=== PATIENT | male | born 1960 | race Caucasian/White ===

== ENCOUNTER 2017-06-01 15:44 | Inpatient (IN) | payer OTHER ==
[~2017-06-01] VITALS: Ht 172.7 cm; Wt 78.5 kg
[2017-06-01] MEDS ORDERED: LIPITOR80 MG PO (16:31)
[2017-06-01] MEDS ORDERED: METOPROLOL SUCC50 M2 PO (16:31)
[2017-06-01] MEDS ORDERED: ASPIR 8181 MG PO (16:32)
[2017-06-01] MEDS ORDERED: ALTACE5 MG (16:32)
[2017-06-01 17:18] LABS: BASOPHIL % 0.6 % (0-2); PLATELET COUNT 217 x10^3mcL (130-400); RED CELL DISTRIBUTION WIDTH 13.4 % (11.5-14.5)
[2017-06-01 17:27] LABS: CALCIUM 9.2 mg/dL (8.5-10.1); CHLORIDE SERUM 103 mmol/L (98-107); CREATININE SERUM 0.9 mg/dL (0.7-1.3); GFR1 > 60 mL/min; GLUCOSE SERUM 90 mg/dL (74-106); POTASSIUM SERUM 3.5 mmol/L (3.5-5.1); SODIUM SERUM 135 mmol/L (136-145)
[2017-06-01 17:31] LABS: ALBUMIN 4.1 g/dL (3.4-5.0); ALKALINE PHOSPHATASE 55 U/L (46-116); ALT/SGPT 35 U/L (16-63); AST/SGOT 27 U/L (15-37); BILIRUBIN TOTAL 0.87 mg/dL (0.20-1.00); HDL CHOLESTEROL 41 mg/dL (40-60); TOTAL PROTEIN, SERUM 7.1 g/dL (6.4-8.2); TRIGLYCERIDES 161 mg/dL (<150)
[2017-06-01 17:34] LABS: CHOLESTEROL 116 mg/dL (<200); CHOLESTEROL/HDL RATIO 2.8
[2017-06-01 18:59] LABS: AMPHETAMINE QUAL UR NONE DETECTED (NEG <=1000)
[2017-06-01 19:25] LABS: PHOSPHOROUS 4.2 mg/dL (2.5-4.9)
[2017-06-01 19:34] VITALS: Ht 172.7 cm; Wt 78.5 kg
[2017-06-01 19:35] LABS: T3 TOTAL 0.96 ng/mL
[2017-06-01 19:37] LABS: FREE T4 0.92 ng/dL (0.76-1.46); FREE THYROXINE INDEX 2.8 ug/dL (1.4-4.5); T4(THYROXINE) 8.1 ug/dL (4.7-13.3)
[2017-06-02 06:33] VITALS: BP 120/69
[2017-06-02 09:20] VITALS: BP 120/76
[2017-06-02 13:47] VITALS: BP 114/78
[2017-06-02 14:53] LABS: microscopic required? NO
[2017-06-02 14:58] LABS: urine erythrocyte NEGATIVE (NEGATIVE)
[2017-06-02 18:46] VITALS: BP 119/76
[2017-06-02 20:18] VITALS: BP 115/72
[2017-06-03 05:44] VITALS: BP 120/74
[2017-06-03 06:28] LABS: BASOPHIL % 0.4 % (0-2); PLATELET COUNT 211 x10^3mcL (130-400); RED CELL DISTRIBUTION WIDTH 13.3 % (11.5-14.5)
[2017-06-03 06:34] LABS: CALCIUM 8.8 mg/dL (8.5-10.1); CARBON DIOXIDE 28.7 mmol/L (21-32); CHLORIDE SERUM 106 mmol/L (98-107); CREATININE SERUM 0.9 mg/dL (0.7-1.3); GFR1 > 60 mL/min; GLUCOSE SERUM 98 mg/dL (74-106); POTASSIUM SERUM 4.4 mmol/L (3.5-5.1); SODIUM SERUM 142 mmol/L (136-145)
[2017-06-03 10:30] VITALS: BP 127/76
[2017-06-03 17:37] VITALS: BP 101/64
[2017-06-03] MEDS ORDERED: METOPROLOL TART25 M1 PO (18:21)
[2017-06-03 19:16] VITALS: BP 101/64
== END 2017-06-03 19:45 | disposition home or self-care (01) | DRG 309 ==
LOC: ED 15:44 → DU 18:34
PROVIDERS: Emergency Medicine; ADMIT Family Medicine
DX: R00.1 Bradycardia, unspecified (principal); E87.1 Hypo-osmolality and hyponatremia; K21.9 Gastro-esophageal reflux disease without esophagitis; I10 Essential (primary) hypertension; Z95.1 Presence of aortocoronary bypass graft; Z95.5 Presence of coronary angioplasty implant and graft; Z79.82 Long term (current) use of aspirin; Z88.0 Allergy status to penicillin; E78.5 Hyperlipidemia, unspecified; E66.3 Overweight; Z68.26 Body mass index [BMI] 26.0-26.9, adult
CPT/HCPCS: 82962; 83880; 84439; A9500; J7030; Q0092

== ENCOUNTER → 2019-02-01 | Outpatient (CLI) | payer OTHER ==
[~2019-02-01] MED LIST: ALTACE5 MG; ASPIR 8181 MG PO; LIPITOR80 MG PO; METOPROLOL SUCC50 M2 PO; METOPROLOL TART25 M1 PO
[2019-02-01 08:10] LABS: microscopic required? NO
[2019-02-01 08:27] LABS: BASOPHIL % 0.3 % (0-2); PLATELET COUNT 215 x10^3mcL (130-400); RED CELL DISTRIBUTION WIDTH 13.5 % (11.5-14.5)
[2019-02-01 08:29] LABS: urine erythrocyte NEGATIVE (NEGATIVE)
[2019-02-01 09:03] LABS: ALBUMIN 4.5 g/dL (3.4-5.0); ALKALINE PHOSPHATASE 53 U/L (46-116); ALT/SGPT 58 U/L (16-63); AST/SGOT 26 U/L (15-37); BILIRUBIN TOTAL 0.96 mg/dL (0.20-1.00); CALCIUM 9.7 mg/dL (8.5-10.1); CHLORIDE SERUM 104 mmol/L (98-107); FREE T4 0.94 ng/dL (0.76-1.46); GFR1 > 60 mL/min; GLUCOSE SERUM 115 mg/dL (74-106); HDL CHOLESTEROL 38 mg/dL (40-60); MAGNESIUM 1.9 mg/dL (1.8-2.4); POTASSIUM SERUM 4.4 mmol/L (3.5-5.1); SODIUM SERUM 142 mmol/L (136-145); TOTAL PROTEIN, SERUM 7.4 g/dL (6.4-8.2); TRIGLYCERIDES 92 mg/dL (<150)
[2019-02-01 09:27] LABS: CHOLESTEROL 117 mg/dL (<200); CHOLESTEROL/HDL RATIO 3.1
== END | disposition home or self-care (01) ==
LOC: LB 07:50
DX: Z00.01 Encounter for general adult medical examination with abnormal findings (principal)
CPT/HCPCS: 84439

== ENCOUNTER → 2019-10-23 | Outpatient (CLI) | payer OTHER ==
[2019-10-23 08:03] LABS: BASOPHIL % 0.4 % (0-2); PLATELET COUNT 222 x10^3mcL (130-400); RED CELL DISTRIBUTION WIDTH 13.5 % (11.5-14.5)
[2019-10-23 08:28] LABS: ALBUMIN 4.6 g/dL (3.4-5.0); ALKALINE PHOSPHATASE 52 U/L (46-116); ALT/SGPT 42 U/L (16-63); AST/SGOT 23 U/L (15-37); BILIRUBIN DIRECT 0.25 mg/dL (0.0-0.2); BILIRUBIN TOTAL 1.2 mg/dL (0.20-1.00); CALCIUM 9.3 mg/dL (8.5-10.1); CHLORIDE SERUM 103 mmol/L (98-107); CREATININE SERUM 0.9 mg/dL (0.7-1.3); GFR1 > 60 mL/min; GLUCOSE SERUM 101 mg/dL (74-106); HDL CHOLESTEROL 43 mg/dL (40-60); POTASSIUM SERUM 4.1 mmol/L (3.5-5.1); SODIUM SERUM 141 mmol/L (136-145); TOTAL PROTEIN, SERUM 7.7 g/dL (6.4-8.2); TRIGLYCERIDES 87 mg/dL (<150)
[2019-10-23 08:29] LABS: CHOLESTEROL 118 mg/dL (<200); CHOLESTEROL/HDL RATIO 2.7
== END | disposition home or self-care (01) ==
LOC: LB 07:44
PROVIDERS: Internal Medicine
DX: Z00.00 Encounter for general adult medical examination without abnormal findings (principal)
CPT/HCPCS: 84153